=== PATIENT | male | born 1955 | race African-American/Black ===

== ENCOUNTER 2024-01-18 07:04 | Emergency (ER) | payer SELFPAY ==
[~2024-01-18] VITALS: Ht 167.6 cm; Wt 86.2 kg
[2024-01-18 07:09] VITALS: BP 143/66; PULSE 61; RESP 18; TEMP 97.6; O2SAT 99
[2024-01-18] MEDS ORDERED: TORADOL ONE (07:25)
[2024-01-18] MEDS: TORADOL IM ONE (07:39)
[2024-01-18 08:12] VITALS: BP 138/62; PULSE 50; RESP 18; TEMP 97.6; O2SAT 99
== END 2024-01-18 08:12 | disposition home or self-care (01) ==
LOC: ER 07:04
DX: S40.011A Contusion of right shoulder, initial encounter (principal); X58.XXXA Exposure to other specified factors, initial encounter; Y93.89 Activity, other specified; Y92.89 Other specified places as the place of occurrence of the external cause; Y99.8 Other external cause status
CPT/HCPCS: 99283; 96372; 73030; J1885